=== PATIENT | female | born 1975 | race Two or more races ===

== ENCOUNTER 2025-05-26 01:38 | Emergency (ER) | payer MEDICAID, OTHER ==
[~2025-05-26] VITALS: Ht 157.5 cm; Wt 81.7 kg
--- NOTE | 2025-05-26 01:47 | ED.PDOC ---
History of Present Illness HPI Comments 49 y/o F is BIBA for c/c of cramping abdominal pain, with associated nausea, vomiting, and diarrhea. Onset of symptoms at 1200, yesterday. Denial of any bloody or bilious vomitus, constipation, bloody stools, fever, chills, dysuria, or further associated symptoms. En route, patient received Zofran. Chief Complaint: Abdominal Pain Time Seen by MD: 01:40 Reviewed Notes: Nurses Notes, Lining Marker Notes, Medications, Allergies Allergies: Coded Allergies: NO KNOWN ALLERGIES (Unverified , 05/26/25) Information Source: Patient, Emergency Med Personnel Mode of Arrival: EMS Severity: Moderate Timing: Hours Duration: Since onset Prehospital treatment: 12 Lead EKG, Accucheck, Delivery Recruiter, Treatment (Zofran ) Past Medical History PAST MEDICAL HISTORY: Denies Surgical History: Denies all surgeries FIELD MARKETING MANAGER History: No Pertinent FIELD MARKETING MANAGER History All Other Systems: Reviewed and Negative (Comprehensive systems review obtained and negative except for what is stated in the HPI.) Physical Exam General Appearance: No Apparent Distress, Normal HEENT: Normal ENT Inspection, Pharynx Normal, TMs Normal Neck: Full Range of Motion, Non-Tender, Normal, Normal Inspection Respiratory: Chest Non-Tender, Lungs Clear, No Accessory Muscle Use, No Respiratory Distress, Normal Breath Sounds Cardiovascular: No Edema, No JVD, No Murmur, No Gallop, Normal Peripheral Pulses, Regular Rate/Rhythm Breast Exam: Deferred Gastrointestinal: No Organomegaly, Non Tender, No Pulsatile Mass, Normal Bowel Sounds, Soft, Other (actively vomiting ) Genitalia: Deferred Pelvic: Deferred Rectal: Deferred Extremities: No calf tenderness, Normal capillary refill, Normal inspection, Normal range of motion, Non-tender, No pedal edema Musculoskeletal : Apperance: Normal Neurologic: Alert, oncology physician assistant II-XII nml as Tested, No Motor Deficits, Normal Affect, Normal Mood, No Sensory Deficits Cerebellar Function: Normal Reflexes: Normal Skin: Dry, Normal Color, Warm Lymphatic: No Adenopathy Was a procedure done? Was a procedure done?: No Differential Dx Considerations may include: gastritis, gastroenteritis, GERD, PUD, among others X-Ray, Labs, Meds, VS Vital Signs Date Time Temp Pulse Resp B/P (MAP) Pulse Ox O2 Delivery O2 Flow Rate FiO2 05/26/25 01:42 97.5 105 16 155/101 97 97.5 Lab Test 05/26/25 01:48 Range/Units White Blood Count 10.1 4.4-10.8 10^3/uL Red Blood Count 4.97 4.0-5.20 10^6/uL Hemoglobin 15.6 12.2-16.2 g/dL Hematocrit 45.4 36.0-46.0 % Mean Corpuscular Volume 91.3 80.0-100.0 fL Mean Corpuscular Hemoglobin 31.3 28.0-32.0 pg Mean Corpuscular Hemoglobin Concent 34.3 32.0-36.0 g/dL Red Cell Distribution Width 13.0 11.8-14.3 % Platelet Count 297 140-450 10^3/uL Mean Platelet Volume 7.8 6.9-10.8 fL Neutrophils (%) (Auto) 67.9 37.0-80.0 % Lymphocytes (%) (Auto) 24.6 10.0-50.0 % Monocytes (%) (Auto) 6.6 0.0-12.0 % Eosinophils (%) (Auto) 0.6 0.0-7.0 % Basophils (%) (Auto) 0.3 0.0-2.0 % Neutrophils # (Auto) 6.9 1.6-8.6 10 ^3/uL Lymphocytes # (Auto) 2.5 0.4-5.4 10 ^3/uL Monocytes # (Auto) 0.7 0-1.3 10 ^3/uL Eosinophils # (Auto) 0.1 0-0.8 10 ^3/uL Basophils # (Auto) 0 0-0.2 10 ^3/uL Nucleated Red Blood Cells 0.1 % Sodium Level 139 136-145 mmol/L Potassium Level 3.6 3.5-5.1 mmol/L Chloride Level 105 98-107 mmol/L Carbon Dioxide Level 23 20-31 mmol/L Anion Gap 11 5-15 Blood Urea Nitrogen 8 L 9-23 mg/dL Creatinine 0.60 0.550-1.02 mg/dL Glomerular Filtration Rate Calc 110 >90 mL/min BUN/Creatinine Ratio 13.3 10.0-20.0 Serum Glucose 117 H 74-106 mg/dL Calcium Level 9.3 8.7-10.4 mg/dL Time of 1ST Reevaluation: 02:10 Reevaluation 1ST: Unchanged Patient Education/Counseling: Diagnosis, Treatment Family Education/Counseling: No Family Present SEPSIS Sepsis Screen Vital Signs Date Time Temp Pulse Resp B/P (MAP) Pulse Ox O2 Delivery O2 Flow Rate FiO2 05/26/25 01:42 97.5 105 16 155/101 97 97.5 Laboratory Tests Test 05/26/25 01:48 White Blood Count 10.1 10^3/uL (4.4-10.8) Departure 1 Departure Time of Disposition: 04:10 (Patient likely with gastroenteritis. We will discharge patient home with outpatient follow up) Impression: Primary Impression: Gastroenteritis Disposition: HOME / SELF CARE / HOMELESS Condition: Stable Additional Instructions: You likely have a viral illness. It is important to stay well rested and well hydrated. You can take Tylenol and Motrin as needed for pain and fever. For a sore throat you can drink warm tea with honey. You can take [id number] pseudoephedrine for nasal congestion. He should follow up with your regular doctor within 1 week to ensure you are doing better. If your symptoms worsen or you have any other concerns please return to the emergency room. e-Prescriptions Ondansetron Odt 4MG Tab (ZOFRAN PO) 4 Mg Tb 4 MG PO TID PRN for 4 Days, #12 TAB ODT TAB-DISSOLVE IN MOUTH, THEN SWALLOW Prov: HALIE CONWAY MD 05/26/25 Discharged With: Self Critical Care Note Critical Care Time?: No Stability Stability form required: No Heart Score Heart Score: Heart Score Response (Comments) Value History N/A 0 EKG N/A 0 Age N/A 0 Risk Factors N/A 0 Troponin N/A 0 Total 0 I personally scribed for HALIE CONWAY MD ([email or web address]) on 05/26/25 at 01:47. Electronically submitted by David Hernandez [email or web address]). HALIE CONWAY MD May 26, 2025 01:47
[2025-05-26 02:07] LABS: Hematocrit 45.4 % (36.0-46.0); Hemoglobin 15.6 g/dL (12.2-16.2); Mean Corpuscular Hemoglobin 31.3 pg (28.0-32.0); Mean Corpuscular Volume 91.3 fL (80.0-100.0); Nucleated Red Blood Cells % 0.1 %
[2025-05-26 02:22] LABS: Chloride 105 mmol/L (98-107); Potassium 3.6 mmol/L (3.5-5.1); Sodium 139 mmol/L (136-145)
[2025-05-26 02:23] LABS: Anion Gap 11 (5-15); Carbon Dioxide 23 mmol/L (20-31)
[2025-05-26 02:24] LABS: Calcium 9.3 mg/dL (8.7-10.4)
[2025-05-26 02:28] LABS: BUN/Creatinine Ratio 13.3 (10.0-20.0)
[2025-05-26 02:29] LABS: Glucose 117 mg/dL (74-106)
[2025-05-26 02:30] LABS: Blood Urea Nitrogen 8 mg/dL (9-23)
[2025-05-26] MEDS ORDERED: ZOFR4T PO (04:13)
[2025-05-26] MEDS: ONDANSETRON HCL 4 MG/2 ML VIAL IV ONE (05:47)
[2025-05-26] MEDS: SODIUM CHLORIDE 0.9% 1,000 ML IV ONE (05:47)
[2025-05-26] MEDS: FAMOTIDINE (10MG/ML) 2ML VL IV ONE (05:47)
[2025-05-26 06:29] VITALS: BP 151/110; TEMP 98.6
[2025-05-26 06:31] VITALS: PULSE 96; RESP 16; O2SAT 96
== END 2025-05-26 06:48 | disposition home or self-care (01) ==
LOC: ER 01:38 → EDBD 01:38 → ER 06:48
DX: K52.9 Noninfective gastroenteritis and colitis, unspecified (principal)
CPT/HCPCS: 36415; 80048; 85025; 96361; 96374; 96375; 99284; J2405; J3490; J7030